=== PATIENT | male | born 1950 | race Caucasian/White ===

== ENCOUNTER 2024-12-14 19:04 | Observation (INO) ==
[2024-12-14] MEDS: ONDANSETRON HCL/PF 4 MG/2 ML VIAL INJ STA (19:18)
[2024-12-14 19:26] LABS: Basophils #(Absolute) Auto 0.1 (0.0-0.1); Eosinophils#(Absolute)Auto 0.2 (0.0-0.3); Granulocytes % - Auto 71.9 % (49.1-73.1); Hematocrit 41.6 % (41.3-50.1); Mean Corpuscular Volume 98.9 fl (81.9-96.5); Monocytes #(Absolute)- Auto 0.8 (0.2-0.8); Monocytes %(Percent)- Auto 7.5 % (4.5-10.7); Platelet Count 270 K/uL (142-355); White Blood Count 11.2 K/uL (3.7-9.6)
--- NOTE | 2024-12-14 19:28 | Emergency Department Note ---
HPI - General Adult General Chief complaint: Weakness Stated complaint: NAUSEA,VOMITING Time Seen by Provider: 12/14/24 19:11 Source: patient and EMS Mode of arrival: ambulance Limitations: no limitations History of Present Illness HPI narrative: This is a 74 year old male patient that presents to the ER with c/o per EMS patient states he feels numb all over, dizzy and felt like he was going to pass out, patient also has been vomiting. Patient denies any chest pain, SOB, back pain, abdominal pain or fever. Patient states he does not feel good. Patient has an old yellow bruise noted to his left upper forehead Onset (ago): hour(s) (3) Associated symptoms: Reports nausea/vomiting, syncope (near) and other (dizziness) Treatments prior to arrival: Reports other (zofran) Related Data Home Medications Medication Instructions Recorded Confirmed allopurinol 100 mg tablet 100 mg PO DAILY 05/17/24 05/17/24 diclofenac sodium 50 mg 50 mg PO DAILY 05/17/24 05/17/24 tablet,delayed release folic acid 1 mg tablet 3 mg PO DAILY 05/17/24 05/17/24 levothyroxine 50 mcg tablet 50 mcg PO QAM 05/17/24 05/17/24 lisinopril 10 mg tablet 10 mg PO 05/17/24 methotrexate sodium 2.5 mg tablet 7.5 mg PO QWEEK 05/17/24 05/17/24 Allergies Allergy/AdvReac Type Severity Reaction Status Date / Time Penicillins Allergy Unknown Verified 12/14/24 19:16 Review of Systems Status of ROS 10 or more systems reviewed and unremark able except as noted in history and below Constitutional Denies: fever, chills, change in weight, fatigue, malaise or night sweats Eyes Denies: change in vision, blurry vision, blind spots, light sensitivity, eye discomfort or eye discharge Ears, nose, mouth, and throat Denies: throat pain, neck pain, throat swelling, difficulty swallowing, hoarseness, mouth pain, swelling of lips/tongue or dry mouth Cardiovascular Denies: chest pain, palpitations, edema, swelling of feet/ankles, lightheadedness or shortness of breath with exertion Respiratory Denies: shortness of breath, cough, wheezing, stridor, pain on inspiration, change in phlegm color or coughing up blood Gastrointestinal Reports: nausea and vomiting; Denies: abdominal pain, coffee grounds in vomit, heartburn or feeling full early Genitourinary Denies: painful urination, urinary frequency, urinary urgency or blood in urine Musculoskeletal Denies: back pain, neck pain, extremity pain or extremity swelling Integumentary/Breast Denies: rash, itching, redness, skin pain, skin tenderness or skin swelling Neurological Denies: headache, numbness in extremities, weakness in extremities, lack of coordination, dizziness, vertigo or confusion Psychiatric Denies: anxiety, mood swings, panic attacks, change in sleep pattern or hopelessness Endocrine Denies: excessive urination, excessive thirst, fatigue, cold intolerance or excessive sweating Hematologic/Lymphatic Denies: easy bruising, easy bleeding or enlarged lymph nodes Allergic/Immunologic Denies: hives, throat swelling, tongue swelling, facial swelling or wheezing PFSH [facility] Medical History (Updated 05/17/24 @ 16:01 by Joslyn Boswell RN) Gout Surgical History (Updated 05/17/24 @ 16:02 by Joslyn Boswell RN) History of colonoscopy H/O vasectomy Family History (Updated 05/17/24 @ 16:07 by Joslyn Boswell RN) Father Myocardial infarction Grandfather Prostate cancer Exam Constitutional: normal general appearance and no apparent distress Vital Signs - 24 hr 12/14/24 19:14 12/14/24 19:30 12/14/24 20:12 Temperature 98.8 F Pulse Rate 76 77 69 Respiratory Rate 19 25 H Blood Pressure 133/71 132/66 151/80 Pulse Oximetry 98 97 Oxygen Delivery Or thod Room Air Room Air 12/14/24 20:14 12/14/24 20:16 Temperature Pulse Rate 80 69 Respiratory Rate Blood Pressure 147/75 147/69 Pulse Oximetry Oxygen Delivery Or thod HENMT: normocephalic, head/scalp traumatic (yellow bruising left upper forehead), hearing grossly normal bilaterally, external ears normal, nasal mucous membranes normal, external nose normal, oral mucous membranes normal and oropharynx normal Eyes: PERRL, EOMs intact bilaterally, conjunctivae normal and no scleral icterus Neck/C-Spine: visual inspection normal and trachea midline Lymph: no lymphadenopathy noted Chest: inspection of chest normal Respiratory: breath sounds equal bilaterally, normal respiratory effort, clear to auscultation bilaterally, no wheezes, no rales, no retractions and no use of accessory muscles Cardiovascular: normal heart rate noted, regular rhythm noted, no gallop, no rub, no murmur, no JVD, no clicks, peripheral pulses 2+ throughout and no additional abnormal heart sounds Gastrointestinal: abdomen normal to inspection, abdomen soft to palpation, nontender to palpation, nontender to percussion, nondistended, normoactive bowel sounds, no hepatosplenomegaly, no masses, no pulsatile mass, no ascites and no hernia Genitourinary: no CVA tenderness Back/Pelvis: spine normal to inspection Extremities: normal to inspection, normal to palpation, no tenderness, full ROM, no joint enlargement and no deformity 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 VSS, no s/s of acute distress noted Vital Signs Vital signs: Vital Signs Temperature 98.8 F 12/14/24 19:14 Pulse Rate 76 12/14/24 19:14 Respiratory Rate 19 12/14/24 19:14 Blood Pressure 133/71 12/14/24 19:14 Pulse Oximetry 98 12/14/24 19:14 Oxygen Delivery Method Room Air 12/14/24 19:14 Temperature 98.8 F 12/14/24 19:14 Pulse Rate 69 12/14/24 20:16 Respiratory Rate 25 H 12/14/24 19:30 Blood Pressure 147/69 12/14/24 20:16 Pulse Oximetry 97 12/14/24 19:30 Oxygen Delivery Method Room Air 12/14/24 19:30 Medical Decision Making Differential Diagnosis Differential Diagnosis: viral illness Medical Records Medical records reviewed: Yes I reviewed the patient's medical records Lab Data Lab results reviewed: Yes I reviewed the patient's lab results Labs: Lab Results 12/14/24 Range/Units 19:10 WBC 11.2 H (3.7-9.6) K/uL RBC 4.2 L (4.40-5.80) M/uL Hgb 14.2 (14.0-17.4) gm/dL Hct 41.6 (41.3-50.1) % MCV 98.9 H (81.9-96.5) fl MCH 33.9 H (27.6-33.7) pg MCHC 34.2 (33.0-35.7) g/dl RDW 13.7 (11.0-14.8) % Plt Count 270 (142-355) K/uL MPV 8.0 (6.0-10.4) fl Gran % 71.9 (49.1-73.1) % Lymph % (Auto) 17.6 (17.6-39.05) % Mcleod % (Auto) 7.5 (4.5-10.7) % Eos % (Auto) 2.0 (0.0-4.0) % Baso % (Auto) 1.0 (0.0-1.3) Lymph # (Auto) 2.0 (0.8-2.9) Mcleod # (Auto) 0.8 (0.2-0.8) Eos # (Auto) 0.2 (0.0-0.3) Baso # (Auto) 0.1 (0.0-0.1) Absolute Gran (auto) 8.0 H (2.0-6.2) PT 14.2 (12.1-15.0) SECONDS PT Normal Control 13.7 INR 1.05 APTT 27.1 (23.9-36.7) SECONDS D-Dimer 169 (100-600) ng/mL Sodium 140 (136-145) mmol/L Potassium 3.2 L (3.6-5.2) mmol/L Chloride 104.0 (98-107) mmol/L Carbon Dioxide 22 (21-32) mmol/L Anion Gap 14.0 (4-14) mEq/L BUN 20 H (7-18) mg/dL Creatinine 1.4 H (0.6-1.3) mg/dL Estimated GFR 53.1 (>59.9) Glucose 186 H (70-110) mg/dL Calcium 8.9 (8.5-10.1) mg/dL Total Bilirubin 0.42 (0.0-1.0) mg/dL AST 22 (15-37) U/L ALT 28 L (30-65) U/L Alkaline Phosphatase 84 (50-136) U/L Troponin I High Sens 5.50 (4.0-60.4) ng/L Total Protein 7.0 (6.4-8.2) g/dL Albumin 3.9 (3.4-5.0) g/dL Lipase 31.0 (16.0-77.0) U/L Imaging Data CT scan - head: Attestation: I have reviewed the pertinent imaging results. ECG Data Attestation: I have reviewed the pertinent ECG results. Discharge Plan Discharge Patient Disposition: Admitted As Observation Condition: Stable Clinical Impression: Near syncope, Dizziness, Hypokalemia, Nausea & vomiting Time of Disposition: 21:46
[2024-12-14 19:41] LABS: Potassium 3.2 mmol/L (3.6-5.2)
[2024-12-14 19:42] LABS: INR 1.05
[2024-12-14] MEDS: 0.9 % SODIUM CHLORIDE 1000 ML 1,000 ML IV STA (20:06)
[2024-12-14] MEDS: POTASSIUM CHLORIDE 20 MEQ TAB.ER.PRT PO ONE (20:06)
[2024-12-14] MEDS ORDERED: MECLIZINE HCL 25 MG TABLET PO ONE (21:54)
[2024-12-14] MEDS: MECLIZINE HCL 25 MG TABLET PO STA (21:56)
[2024-12-14 22:35] LABS: Specific Gravity Urine 1.015 (1.001-1.035); Urine Appearance CLEAR (CLEAR); Urine Blood NEGATIVE (NEG - TRACE); Urine Color YELLOW (STRAW/YELL.); Urine Urobilinogen Normal (NORMAL)
[2024-12-15] MEDS ORDERED: bisacodyL 10 MG SUPP.RECT PR PRN (00:28)
[2024-12-15] MEDS ORDERED: ONDANSETRON HCL/PF 4 MG/2 ML VIAL INJ PRN (00:28)
[2024-12-15] MEDS ORDERED: MAGNESIUM, ALUMINUM HYDROXIDE 30 ML ORAL.SUSP PO PRN (00:28)
[2024-12-15] MEDS ORDERED: ACETAMINOPHEN 500 MG TABLET PO PRN (00:28)
[2024-12-15] MEDS: 0.9 % SODIUM CHLORIDE 1000 ML 1,000 ML IV SCH (01:06)
[2024-12-15 05:33] LABS: Basophils%(Percent) Auto 0.4 (0.0-1.3); Eosinophils#(Absolute)Auto 0.1 (0.0-0.3); Eosinophils%(Percent) Auto 1.5 % (0.0-4.0); Granulocytes#(Absolute)- Auto 6.2 (2.0-6.2); Hematocrit 39.7 % (41.3-50.1); Mean Corpuscular Volume 99.3 fl (81.9-96.5); Monocytes #(Absolute)- Auto 0.8 (0.2-0.8); Monocytes %(Percent)- Auto 9.8 % (4.5-10.7); Platelet Count 219 K/uL (142-355); White Blood Count 8.6 K/uL (3.7-9.6)
[2024-12-15 08:32] LABS: Potassium 3.7 mmol/L (3.6-5.2)
--- NOTE | 2024-12-15 13:54 | Internal Medicine H&P ---
Internal Medicine - H&P: HPI History of Present Illness Chief complaint: NEAR SYNCOPE,VERTIGO,HYPOKALMEIA,NAUSEA,VOMITING Narrative: Pt in to ER from home with feeling "sick" and "not right." Was in his home when he started to feel sick (nauseated and dyspeptic). Ate a snack, drank some water, and laid down. He felt restless and EMS was called. He felt worse in the ambulance until he threw up and they stopped "in town" for a moment. In the ER, he felt better after Zofran and meclizine. Was found to be mildly dehydrated with mild hypokalemia, both resolved this AM. Admitted for obs due to near syncope/dizziness. Family at bedside and pt still doesn't "feel right." Answers a lot of questions with "I don't know." Family reports he seems more anxious and not answering questions like he normally would. He reports he did not sleep last night. Has been eating, drinking, and ambulating normally. Still no CP, dyspnea, cough, fevers, chills, HAs, vision changes, hearing changes, or return of nausea. Review of Systems Status of ROS 10 or more systems reviewed and unremark able except as noted in history and below Constitutional Denies: fever, chills, change in weight, fatigue, malaise or night sweats Eyes Denies: change in vision, blurry vision, blind spots, light sensitivity, eye discomfort or eye discharge Ears, nose, mouth, and throat Denies: throat pain, neck pain, throat swelling, difficulty swallowing, hoarseness, mouth pain, swelling of lips/tongue, dry mouth or vertigo Cardiovascular Denies: chest pain, palpitations, edema, swelling of feet/ankles, lightheadedness or shortness of breath with exertion Respiratory Denies: shortness of breath, cough, wheezing, stridor, pain on inspiration, change in phlegm color or coughing up blood Gastrointestinal Reports: nausea and vomiting; Denies: abdominal pain, coffee grounds in vomit, heartburn, difficulty swallowing or feeling full early Genitourinary Denies: painful urination, urinary frequency, urinary urgency or blood in urine Musculoskeletal Denies: back pain, neck pain, extremity pain or extremity swelling Integumentary/Breast Denies: rash, itching, redness, skin pain, skin tenderness or skin swelling Neurological Denies: headache, numbness in extremities, weakness in extremities, lack of coordination, dizziness, vertigo or confusion Psychiatric Denies: anxiety, mood swings, panic attacks, change in sleep pattern or hopelessness Endocrine Denies: excessive urination, excessive thirst, fatigue, cold intolerance or excessive sweating Hematologic/Lymphatic Denies: easy bruising, easy bleeding or enlarged lymph nodes Allergic/Immunologic Denies: hives, throat swelling, tongue swelling, facial swelling or wheezing PFSH PFSH Medical History (Updated 12/15/24 @ 14:00 by Ariel Astorga MD) GERD (gastroesophageal reflux disease) Gout Surgical History History of colonoscopy H/O vasectomy Family History (Updated 05/17/24 @ 16:07 by Joslyn Boswell, MOHAN) Father Myocardial infarction Grandfather Prostate cancer Social History What is your current living situation: I presently have a place to live Problems where you live: no known problems Highest level of school completed/degree received: high school Gender Identity: male Meds Home Medications and Allergies Home Medications Medication Instructions Recorded Confirmed Type allopurinol 100 mg tablet 100 mg PO DAILY 05/17/24 12/14/24 History diclofenac sodium 50 mg 50 mg PO DAILY PRN pain 05/17/24 12/15/24 History tablet,delayed release folic acid 1 mg tablet 3 mg PO DAILY 05/17/24 12/14/24 History levothyroxine 50 mcg tablet 50 mcg PO QAM 05/17/24 12/15/24 History lisinopril 10 mg tablet 10 mg PO BID 05/17/24 12/15/24 History methotrexate sodium 2.5 mg tablet 7.5 mg PO QWEEK 05/17/24 12/14/24 History pantoprazole 40 mg tablet,delayed 40 mg PO DAILY 12/14/24 12/14/24 History release cannabidiol See Rx Instructions PO DAILY PAIN 12/15/24 12/15/24 History Allergies Allergy/AdvReac Type Severity Reaction Status Date / Time Penicillins Allergy Unknown Verified 12/14/24 19:16 Exam Constitutional: normal general appearance, no apparent distress, average body habitus, no limitations and alert Vital Signs - 24 hr 12/14/24 19:14 12/14/24 19:30 12/14/24 20:12 Temperature 98.8 F Pulse Rate 76 77 69 Pulse Rate [Left B rachial] Respiratory Rate 19 25 H Blood Pressure 133/71 132/66 151/80 Blood Pressure [Le ft Arm] Pulse Oximetry 98 97 Oxygen Delivery [facility] Room Air Room Air 12/14/24 20:14 12/14/24 20:16 12/14/24 20:45 Temperature Pulse Rate 80 69 66 Pulse Rate [Left B rachial] Respiratory Rate 19 Blood Pressure 147/75 147/69 129/67 Blood Pressure [Le ft Arm] Pulse Oximetry 99 [facility] 12/14/24 21:45 12/14/24 22:45 12/14/24 23:45 Temperature Pulse Rate 71 69 71 Pulse Rate [Left B rachial] Respiratory Rate 16 18 16 Blood Pressure 140/87 152/82 149/83 Blood Pressure [Le ft Arm] Pulse Oximetry 98 99 98 Oxygen Delivery [facility] Room Air 12/14/24 23:45 12/15/24 00:28 12/15/24 00:29 Temperature 98.8 F 98.6 F Pulse Rate 71 Pulse Rate [Left B rachial] 66 Respiratory Rate 16 20 Blood Pressure 149/83 Blood Pressure [Le ft Arm] 140/77 Pulse Oximetry 98 99 Oxygen Delivery [facility] Room Air Room Air 12/15/24 00:29 12/15/24 04:00 12/15/24 08:00 Temperature 98.6 F 98.5 F 98.3 F Pulse Rate Pulse Rate [Left B rachial] 66 29 L 73 Respiratory Rate 20 19 20 Blood Pressure Blood Pressure [Le ft Arm] 140/77 118/60 113/73 Pulse Oximetry 99 93 L 97 Oxygen Delivery [facility] Room Air Room Air Room Air 12/15/24 12:00 Temperature 97.9 F Pulse Rate Pulse Rate [Left B rachial] 73 Respiratory Rate 20 Blood Pressure Blood Pressure [Le ft Arm] 115/65 Pulse Oximetry 97 Oxygen Delivery [facility] Room Air HENMT: normocephalic, head/scalp atraumatic, hearing grossly normal bilaterally and external ears normal Eyes: PERRL, EOMs intact bilaterally, conjunctivae normal, normal visual segal by confrontation, alignment normal, periorbital findings normal and no nystagmus Neck/C-Spine: visual inspection normal, trachea midline and cervical full ROM noted Lymph: no lymphadenopathy noted Chest: palpation of chest normal Respiratory: breath sounds equal bilaterally, normal respiratory effort, clear to auscultation bilaterally, no wheezes, no rales and no retractions Cardiovascular: normal heart rate noted, regular rhythm noted, no murmur and peripheral pulses 2+ throughout Gastrointestinal: abdomen normal to inspection, abdomen soft to palpation, nontender to palpation, nondistended, normoactive bowel sounds and no hepatosplenomegaly Genitourinary: no CVA tenderness Back/Pelvis: no thoracic spine tenderness, no lumbar spine tenderness, thoracic spine ROM normal, lumbar spine ROM normal and no paraspinal muscle tenderness noted Extremities: normal to inspection, normal to palpation, no tenderness and full ROM Neurology: drilling rig operator II-XII intact, no movement abnormality noted, no focal motor deficit noted, gait normal, speech normal, coordination normal and GCS normal Psychiatry: mental status grossly normal, oriented x3, thought process normal, cooperative, affect abnormality noted (anxious) and (tearful), psychomotor activity normal and memory abnormal (short term memory loss) Skin: skin color normal Internal Medicine - H&P: Reslt Labs Labs: CBC WBC 8.6 K/uL (3.7-9.6) 12/15/24 05:30 RBC 4.0 M/uL (4.40-5.80) L 12/15/24 05:30 Hgb 13.6 gm/dL (14.0-17.4) L 12/15/24 05:30 Hct 39.7 % (41.3-50.1) L 12/15/24 05:30 MCV 99.3 fl (81.9-96.5) H 12/15/24 05:30 MCH 34.1 pg (27.6-33.7) H 12/15/24 05:30 MCHC 34.3 g/dl (33.0-35.7) 12/15/24 05:30 RDW 13.6 % (11.0-14.8) 12/15/24 05:30 Plt Count 219 K/uL (142-355) 12/15/24 05:30 MPV 7.9 fl (6.0-10.4) 12/15/24 05:30 Gran % 72.0 % (49.1-73.1) 12/15/24 05:30 Lymph % (Auto) 16.3 % (17.6-39.05) L 12/15/24 05:30 [place] % (Auto) 9.8 % (4.5-10.7) 12/15/24 05:30 Eos % (Auto) 1.5 % (0.0-4.0) 12/15/24 05:30 Baso % (Auto) 0.4 (0.0-1.3) 12/15/24 05:30 Lymph # (Auto) 1.4 (0.8-2.9) 12/15/24 05:30 [place] # (Auto) 0.8 (0.2-0.8) 12/15/24 05:30 Eos # (Auto) 0.1 (0.0-0.3) 12/15/24 05:30 Baso # (Auto) 0.0 (0.0-0.1) 12/15/24 05:30 Absolute Gran (auto) 6.2 (2.0-6.2) 12/15/24 05:30 BMP Sodium 140 mmol/L (136-145) 12/15/24 05:30 Potassium 3.7 mmol/L (3.6-5.2) 12/15/24 05:30 Chloride 108.0 mmol/L (98-107) H 12/15/24 05:30 Carbon Dioxide 26 mmol/L (21-32) 12/15/24 05:30 Anion Gap 6.0 mEq/L (4-14) 12/15/24 05:30 BUN 15 mg/dL (7-18) 12/15/24 05:30 Creatinine 1.1 mg/dL (0.6-1.3) 12/15/24 05:30 Estimated GFR 70.9 (>59.9) 12/15/24 05:30 Glucose 86 mg/dL (70-110) 12/15/24 05:30 Calcium 8.2 mg/dL (8.5-10.1) L 12/15/24 05:30 Magnesium 2.2 mg/dL (1.8-2.4) 12/15/24 05:30 Total Bilirubin 0.42 mg/dL (0.0-1.0) 12/14/24 19:10 AST 22 U/L (15-37) 12/14/24 19:10 ALT 28 U/L (30-65) L 12/14/24 19:10 Alkaline Phosphatase 84 U/L (50-136) 12/14/24 19:10 Total Protein 7.0 g/dL (6.4-8.2) 12/14/24 19:10 Albumin 3.9 g/dL (3.4-5.0) 12/14/24 19:10 Cardiac Enzymes Troponin I High Sens 5.70 ng/L (4.0-60.4) 12/14/24 21:25 Liver Function Total Bilirubin 0.42 mg/dL (0.0-1.0) 12/14/24 19:10 AST 22 U/L (15-37) 12/14/24 19:10 ALT 28 U/L (30-65) L 12/14/24 19:10 Alkaline Phosphatase 84 U/L (50-136) 12/14/24 19:10 Total Protein 7.0 g/dL (6.4-8.2) 12/14/24 19:10 Albumin 3.9 g/dL (3.4-5.0) 12/14/24 19:10 Urine Urine Color Yellow (STRAW/YELL.) 12/14/24 21:13 Urine Appearance Clear (CLEAR) 12/14/24 21:13 Ur Specific Shepherd 1.015 (1.001-1.035) 12/14/24 21:13 Urine Protein Negative (NEGATIVE) 12/14/24 21:13 Urine Glucose (UA) Normal (NORMAL) 12/14/24 21:13 Urine Ketones Negative (NEGATIVE) 12/14/24 21:13 Urine Occult Blood Negative (NEG - TRACE) 12/14/24 21:13 Urine Nitrite Negative (NEGATIVE) 12/14/24 21:13 Urine Bilirubin Negative (NEGATIVE) 12/14/24 21:13 Urine Urobilinogen Normal (NORMAL) 12/14/24 21:13 Ur Leukocyte Esterase Negative (NEGATIVE) 12/14/24 21:13 Assessment and Plan Assessment and Plan (1) Hypertension: Assessment and Plan: stable. home meds tomorrow Qualifiers: Hypertension type: primary hypertension Qualified Code(s): I10 - Essential (primary) hypertension Code(s): I10 - Essential (primary) hypertension (2) Rheumatoid arthritis: Assessment and Plan: hold MTX for now. Qualifiers: Rheumatoid factor presence: with rheumatoid factor Rheumatoid arthritis location: multiple sites Qualified Code(s): M05.79 - Rheumatoid arthritis with rheumatoid factor of multiple sites without organ or systems involvement Code(s): M06.9 - Rheumatoid arthritis, unspecified (3) Syncope, near: Assessment and Plan: Vertigo vs cardiac vs electrolytes/dehydration vs CVA/TIA. Code(s): R55 - Syncope and collapse (4) Hypokalemia: Assessment and Plan: resolved Code(s): E87.6 - Hypokalemia (5) Acute kidney injury: Assessment and Plan: resolved Code(s): N17.9 - Acute kidney failure, unspecified (6) Mild dehydration: Assessment and Plan: resolved Code(s): E86.0 - Dehydration Plan IVFs, telemetry, Zofran/Meclizine/Valium x1 and monitor. Plan to keep until Tuesday for carotid dopplers, brain MRI, ECHO, and EST/NST.
[2024-12-15] MEDS: LEVOTHYROXINE SODIUM 50 MCG TABLET PO SCH (14:32)
[2024-12-15] MEDS: MECLIZINE HCL 25 MG TABLET PO PRN (14:32)
[2024-12-15] MEDS: MELATONIN 5 MG TABLET PO SCH (21:45)
[2024-12-16] MEDS: ALLOPURINOL 100 MG TABLET PO SCH (08:02)
[2024-12-16] MEDS: FOLIC ACID 1 MG TABLET PO SCH (08:02)
[2024-12-16] MEDS: LEVOTHYROXINE SODIUM 50 MCG TABLET PO SCH (08:03)
[2024-12-16] MEDS: PANTOPRAZOLE SODIUM 40 MG TABLET.DR PO SCH (08:03)
--- NOTE | 2024-12-16 09:00 | Internal Medicine Prog Note ---
Progress Note: A&P Assessment and Plan (1) Hypertension: Assessment and Plan: stable. Qualifiers: Hypertension type: primary hypertension Qualified Code(s): I10 - Essent ial (primary) hypertension (2) Rheumatoid arthritis: Assessment and Plan: hold MTX for now. Qualifiers: Rheumatoid arthritis location: multiple sites Rheumatoid factor presence: with rheumatoid factor Qualified Code(s): M05.79 - Rheumatoid arthritis with rheumatoid factor of multiple sites without organ or systems involvement (3) Syncope, near: Assessment and Plan: ECHO, Carotid Dopplers, EST, and brain MRI tomorrow. (4) Hypokalemia: Assessment and Plan: resolved. repeat BMP today (5) Acute kidney injury: Assessment and Plan: resolved, repeat BMP. (6) Mild dehydration: Assessment and Plan: resolved Plan Syncope testing tomorrow. Zofran/Antivert prn. Fall Risk Details Petit Fall Scale Risk Level: Low Fall Risk Current Medications: Current Medications Acetaminophen (Acetaminophen 500 Mg Tablet) 500 mg PO Q6H PRN PRN Reason: Pain Allopurinol (Allopurinol 100 Mg Tablet) 100 mg PO DAILY [facility] Last Admin: 12/16/24 08:02 Dose: 100 mg Bisacodyl (Bisacodyl 10 Mg Supp.Rect) 10 mg NM DAILY PRN PRN Reason: Constipation Folic Acid (Folic Acid 1 Mg Tablet) 3 mg PO DAILY [facility] Last Admin: 12/16/24 08:02 Dose: 3 mg Sodium Chloride (Sodium Chloride) 1,000 mls @ 100 mls/hr IV CONT [facility] Last Admin: 12/16/24 00:40 Dose: 100 mls/hr Levothyroxine Sodium (Levothyroxine Sodium 50 Mcg Tablet) 50 mcg PO DAILY [facility] Last Admin: 12/16/24 08:03 Dose: 50 mcg Lorazepam (Lorazepam 2 Mg/Ml Vial) 1 mg IVP Q6H PRN; Protocol PRN Reason: Anxiety/restlessness Magnesium Hydroxide (Magnesium, Aluminum Hydroxide 30 Ml Oral.Susp) 30 ml PO DAILY PRN PRN Reason: gerd Meclizine HCl (Meclizine Hcl 25 Mg Tablet) 25 mg PO Q8H PRN PRN Reason: Vertigo Last Admin: 12/16/24 08:07 Dose: 25 mg Melatonin (Melatonin 5 Mg Tablet) 5 mg PO ONCE [facility] Last Admin: 12/15/24 21:45 Dose: 5 mg Ondansetron HCl (Ondansetron Hcl/Pf 4 Mg/2 Ml Vial) 4 mg INJ Q6H PRN PRN Reason: Nausea And Vomiting Pantoprazole Sodium (Pantoprazole Sodium 40 Mg Tablet.Dr) 40 mg PO DAILY [facility] Last Admin: 12/16/24 08:03 Dose: 40 mg Time Spent With Patient Time: Total time spent is greater than 50% in coordination of care (as documented) at patient's floor/unit and/or counseling patient: Time with patient: less than 15 minutes Internal Medicine - PN: Subj Subjective Interval history: Slept well last night. Son and nurse at bedside. No overnight events. Still wants to stay for testing tomorrow. Did have Zofran/Antivert yesterday. Symptoms have not returned and he no longer has a sense of doom. Exam Constitutional: normal general appearance, no apparent distress, average body habitus, no limitations and alert Vital Signs - 24 hr 12/15/24 12:00 12/15/24 16:00 12/15/24 20:00 Temperature 97.9 F 98 F 98.5 F Pulse Rate [Left B rachial] 73 63 72 Respiratory Rate 20 20 17 Blood Pressure [Le ft Arm] 115/65 135/71 139/58 Pulse Oximetry 97 96 95 [facility] Delivery [facility] Room Air Room Air Room Air 12/16/24 00:00 12/16/24 00:28 12/16/24 04:00 Temperature 98.8 F 98.8 F 98.3 F Pulse Rate [Left B rachial] 66 66 57 L Respiratory Rate 18 18 17 Blood Pressure [Le ft Arm] 112/55 112/55 107/65 Pulse Oximetry 94 L 94 L 95 Oxygen Delivery [facility] Room Air Room Air Room Air 12/16/24 07:33 Temperature 97.6 F Pulse Rate [Left B rachial] 50 L Respiratory Rate 19 Blood Pressure [Le ft Arm] 103/59 Pulse Oximetry 95 Oxygen Delivery [facility] Room Air HENMT: normocephalic, head/scalp atraumatic, hearing grossly normal bilaterally and external ears normal Eyes: PERRL, EOMs intact bilaterally and conjunctivae normal Respiratory: breath sounds equal bilaterally, normal respiratory effort, clear to auscultation bilaterally and no wheezes Cardiovascular: normal heart rate noted, regular rhythm noted and no murmur Gastrointestinal: abdomen normal to inspection, abdomen soft to palpation, nontender to palpation, nondistended and normoactive bowel sounds Back/Pelvis: thoracic spine ROM normal and lumbar spine ROM normal Extremities: normal to inspection, normal to palpation and full ROM Neurology: field underwriter II-XII intact, no movement abnormality noted, speech normal and no fasciculations noted Psychiatry: mental status grossly normal, oriented x3, thought process normal, cooperative, affect normal, psychomotor activity normal and memory normal Review of Systems Status of ROS: 10 or more systems reviewed and unremarkable except as noted in history and below Constitutional: Denies: fever, chills, change in weight, fatigue, malaise or night sweats Eyes: Denies: change in vision, blurry vision, blind spots, light sensitivity, eye discomfort or eye discharge Ears, nose, mouth, and throat: Denies: throat pain, neck pain, throat swelling, difficulty swallowing, hoarseness, mouth pain, swelling of lips/tongue, dry mouth or vertigo Cardiovascular: Denies: chest pain, palpitations, edema, swelling of feet/ankles, lightheadedness or shortness of breath with exertion Respiratory: Denies: shortness of breath, cough, wheezing, stridor, pain on inspiration, change in phlegm color or coughing up blood Gastrointestinal: Reports: nausea and vomiting; Denies: abdominal pain, coffee grounds in vomit, heartburn, difficulty swallowing or feeling full early Genitourinary: Denies: painful urination, urinary frequency, urinary urgency or blood in urine Musculoskeletal: Denies: back pain, neck pain, extremity pain or extremity swelling Integumentary/Breast: Denies: rash, itching, redness, skin pain, skin tenderness or skin swelling Neurological: Denies: headache, numbness in extremities, weakness in extremities, lack of coordination, dizziness, vertigo or confusion Psychiatric: Denies: anxiety, mood swings, panic attacks, change in sleep pattern or hopelessness Endocrine: Denies: excessive urination, excessive thirst, fatigue, cold intolerance or excessive sweating Hematologic/Lymphatic: Denies: easy bruising, easy bleeding or enlarged lymph nodes Allergic/Immunologic: Denies: hives, throat swelling, tongue swelling, facial swelling or wheezing
[2024-12-17 05:16] LABS: Basophils #(Absolute) Auto 0.1 (0.0-0.1); Basophils%(Percent) Auto 0.9 (0.0-1.3); Eosinophils#(Absolute)Auto 0.4 (0.0-0.3); Eosinophils%(Percent) Auto 6.3 % (0.0-4.0); Granulocytes % - Auto 60.2 % (49.1-73.1); Granulocytes#(Absolute)- Auto 4.2 (2.0-6.2); Mean Corpuscular Volume 100.6 fl (81.9-96.5); Monocytes #(Absolute)- Auto 0.7 (0.2-0.8); Monocytes %(Percent)- Auto 9.7 % (4.5-10.7); Platelet Count 185 K/uL (142-355); White Blood Count 6.9 K/uL (3.7-9.6)
[2024-12-17] MEDS: LORazepam 2 MG/ML VIAL IVP PRN (05:29)
[2024-12-17 05:30] LABS: Potassium 3.9 mmol/L (3.6-5.2)
[2024-12-17] MEDS: ENOXAPARIN SODIUM 40 MG/0.4 ML SYRINGE SUBQ SCH (09:54)
--- NOTE | 2024-12-17 10:57 | Progress Note ---
Progress Note: Subjective Subjective Interval history: Patient had an episode of anxiety around 4 a.m, was resolved with Ativan. Provider requested Physical Therapy to evaluate and perform Marilyn maneuver. Patient has a hard time explaining how he is feeling and states he is having trouble processing things when first looking at them. He disclosed he has not been taking his Thyroid medication, suspected Myxedema as a result. Echocardiogram and CTA of Head/Neck will be performed today. other than eyes and head feeling funny and different patient denies any further issues since Tuesday been doing OK otherwise. Exam Exam: Patient in low chavarria's position with two family members at bedside upon entering room for exam. Constitutional: normal general appearance, no apparent distress, average body habitus, limitations noted (altered mental status) and level of alertness abnormal (confused) Vital Signs - 24 hr 12/16/24 11:58 12/16/24 16:00 12/16/24 20:00 Temperature 98.1 F 98.7 F 98.7 F Pulse Rate [Left B rachial] 81 62 65 Respiratory Rate 19 19 17 Blood Pressure [Le ft Arm] 177/92 146/70 124/73 Pulse Oximetry 98 96 95 Oxygen Delivery [facility] Room Air Room Air Room Air 12/17/24 00:00 12/17/24 00:00 12/17/24 04:00 Temperature 98.3 F 98.3 F 98.4 F Pulse Rate [Left B rachial] 56 L 56 L 53 L Respiratory Rate 16 16 17 Blood Pressure [Le ft Arm] 105/53 105/53 123/64 Pulse Oximetry 96 96 96 Oxygen Delivery [facility] Room Air Room Air Room Air 12/17/24 07:52 Temperature 97.8 F Pulse Rate [Left B rachial] 60 Respiratory Rate 20 Blood Pressure [Le ft Arm] 132/70 Pulse Oximetry 97 Oxygen Delivery [facility] Room Air HENMT: normocephalic, head/scalp atraumatic, hearing grossly normal bilaterally, external ears normal, TMs normal bilaterally, nasal mucous membranes normal, external nose normal, oral mucous membranes normal and oropharynx normal Eyes: PERRL, EOMs intact bilaterally, conjunctivae normal, no scleral icterus, papilledema noted, normal visual segal by confrontation, alignment normal, periorbital findings normal and no nystagmus Neck/C-Spine: visual inspection normal, trachea midline, cervical spine nontender, abnormal cervical ROM noted, supple, no meningeal signs, thyroid normal and no carotid bruits Lymph: no lymphadenopathy noted and no lymphedema noted Chest: inspection of chest normal and palpation of chest normal Respiratory: breath sounds equal bilaterally, normal respiratory effort, clear to auscultation bilaterally, no wheezes, no rales, no retractions and no use of accessory muscles Cardiovascular: heart rate abnormal (bradycardic), regular rhythm noted, no gallop, no rub, no murmur, no JVD, no clicks, peripheral pulses 2+ throughout, no bruits noted and no additional abnormal heart sounds Gastrointestinal: abdomen normal to inspection, abdomen soft to palpation, nontender to palpation, nontender to percussion, nondistended, normoactive bowel sounds, no hepatosplenomegaly, no masses, no pulsatile mass, no ascites and no hernia Genitourinary: no CVA tenderness Back/Pelvis: spine normal to inspection, no thoracic spine tenderness, no lumbar spine tenderness, thoracic spine ROM normal, lumbar spine ROM normal and no paraspinal muscle tenderness noted Extremities: normal to inspection, normal to palpation, no tenderness, full ROM, no joint enlargement and no deformity Neurology: shirt sorter II-XII intact, no movement abnormality noted, no focal motor deficit noted, no sensory deficits noted, gait normal, speech normal, coordination normal, no pronator drift noted, no fasciculations noted and GCS normal Psychiatry: mental status grossly normal, oriented x3, thought process abnormality noted, cooperative, affect abnormality noted (depressed), psychomotor activity normal and memory normal Feel stressed/tense/nervous/anxious/difficulty sleeping: not at all Skin: skin color normal, no rash, no lesions, no ecchymosis noted, no wounds, no lacerations, skin turgor normal, no jaundice, no petechiae, no mottling and nails abnormality noted Progress Note: Objective Labs Labs: CBC WBC 6.9 K/uL (3.7-9.6) 12/17/24 04:50 RBC 3.8 M/uL (4.40-5.80) L 12/17/24 04:50 Hgb 13.1 gm/dL (14.0-17.4) L 12/17/24 04:50 Hct 38.0 % (41.3-50.1) L 12/17/24 04:50 MCV 100.6 fl (81.9-96.5) H 12/17/24 04:50 MCH 34.6 pg (27.6-33.7) H 12/17/24 04:50 MCHC 34.4 g/dl (33.0-35.7) 12/17/24 04:50 RDW 13.9 % (11.0-14.8) 12/17/24 04:50 Plt Count 185 K/uL (142-355) 12/17/24 04:50 MPV 7.9 fl (6.0-10.4) 12/17/24 04:50 Gran % 60.2 % (49.1-73.1) 12/17/24 04:50 Lymph % (Auto) 22.9 % (17.6-39.05) 12/17/24 04:50 [facility] [facility] % (Auto) 9.7 % (4.5-10.7) 12/17/24 04:50 Eos % (Auto) 6.3 % (0.0-4.0) H 12/17/24 04:50 Baso % (Auto) 0.9 (0.0-1.3) 12/17/24 04:50 Lymph # (Auto) 1.6 (0.8-2.9) 12/17/24 04:50 [facility] # (Auto) 0.7 (0.2-0.8) 12/17/24 04:50 Eos # (Auto) 0.4 (0.0-0.3) H 12/17/24 04:50 Baso # (Auto) 0.1 (0.0-0.1) 12/17/24 04:50 Absolute Gran (auto) 4.2 (2.0-6.2) 12/17/24 04:50 BMP Sodium 141 mmol/L (136-145) 12/17/24 04:50 Potassium 3.9 mmol/L (3.6-5.2) 12/17/24 04:50 Chloride 110.0 mmol/L (98-107) H 12/17/24 04:50 Carbon Dioxide 24 mmol/L (21-32) 12/17/24 04:50 Anion Gap 7.0 mEq/L (4-14) 12/17/24 04:50 BUN 14 mg/dL (7-18) 12/17/24 04:50 Creatinine 1.2 mg/dL (0.6-1.3) 12/17/24 04:50 Estimated GFR 63.9 (>59.9) 12/17/24 04:50 Glucose 88 mg/dL (70-110) 12/17/24 04:50 Calcium 8.0 mg/dL (8.5-10.1) L 12/17/24 04:50 Magnesium 2.2 mg/dL (1.8-2.4) 12/15/24 05:30 Total Bilirubin 0.42 mg/dL (0.0-1.0) 12/14/24 19:10 AST 22 U/L (15-37) 12/14/24 19:10 ALT 28 U/L (30-65) L 12/14/24 19:10 Alkaline Phosphatase 84 U/L (50-136) 12/14/24 19:10 Total Protein 7.0 g/dL (6.4-8.2) 12/14/24 19:10 Albumin 3.9 g/dL (3.4-5.0) 12/14/24 19:10 Cardiac Enzymes Troponin I High Sens 5.70 ng/L (4.0-60.4) 12/14/24 21:25 Liver Function Total Bilirubin 0.42 mg/dL (0.0-1.0) 12/14/24 19:10 AST 22 U/L (15-37) 12/14/24 19:10 ALT 28 U/L (30-65) L 12/14/24 19:10 Alkaline Phosphatase 84 U/L (50-136) 12/14/24 19:10 Total Protein 7.0 g/dL (6.4-8.2) 12/14/24 19:10 Albumin 3.9 g/dL (3.4-5.0) 12/14/24 19:10 Urine Urine Color Yellow (STRAW/YELL.) 12/14/24 21:13 Urine Appearance Clear (CLEAR) 12/14/24 21:13 Ur Specific [place] 1.015 (1.001-1.035) 12/14/24 21:13 Urine Protein Negative (NEGATIVE) 12/14/24 21:13 Urine Glucose (UA) Normal (NORMAL) 12/14/24 21:13 Urine Ketones Negative (NEGATIVE) 12/14/24 21:13 Urine Occult Blood Negative (NEG - TRACE) 12/14/24 21:13 Urine Nitrite Negative (NEGATIVE) 12/14/24 21:13 Urine Bilirubin Negative (NEGATIVE) 12/14/24 21:13 Urine Urobilinogen Normal (NORMAL) 12/14/24 21:13 Ur Leukocyte Esterase Negative (NEGATIVE) 12/14/24 21:13 Progress Note: A&P Assessment and Plan (1) Myxedema: (2) Acute kidney injury: Assessment and Plan: resolved, repeat BMP. (3) Confusion and disorientation: Assessment and Plan: feels funny (4) Vertigo: Assessment and Plan: changed since Tuesday and patient has trouble clarifying the change in vision and feeling off and foggy headed (5) Hypertension: Assessment and Plan: stable. Qualifiers: Hypertension type: primary hypertension Qualified Code(s): I10 - Essential (primary) hypertension (6) Rheumatoid arthritis: Assessment and Plan: hold MTX for now. Qualifiers: Rheumatoid arthritis location: multiple sites Rheumatoid factor presence: with rheumatoid factor Qualified Code(s): M05.79 - Rheumatoid arthritis with rheumatoid factor of multiple sites without organ or systems involvement (7) Syncope, near: Assessment and Plan: ECHO, Carotid Dopplers, EST, and brain MRI tomorrow. (8) Hypokalemia: Assessment and Plan: resolved. repeat BMP today (9) Mild dehydration: Assessment and Plan: resolved (10) Nausea & vomiting: Assessment and Plan: resolved since Tuesday Qualifiers: Vomiting type: unspecified Qualified Code(s): R11.2 - Nausea with vomiting, unspecified Plan Allopurinol 100 mg PO DAILY Folic Acid 3 mg PO DAILY Pantoprazole Sodium 40 mg PO DAILY Melatonin 5 mg PO ONCE Levothyroxine Sodium 50 mcg PO DAILY restarted as patient had stopped it on his own months ago without discussing with [place] Enoxaparin Sodium 40 mg SUBQ DAILY DVT prophylaxis Acetaminophen 500 mg PO Q6H PRN Magnesium Hydroxide 30 ml PO DAILY PRN Bisacodyl 10 mg AL DAILY PRN Ondansetron Hcl 4 mg INJ Q6H PRN Meclizine Hcl 25 mg PO Q8H PRN CTA Head/Neck Echocardiogram PT/OT Eval - Marilyn Maneuver and near syncope Fall Risk Details Petit Fall Scale Risk Level: Moderate Fall Risk Current Medications: Current Medications Acetaminophen (Acetaminophen 500 Mg Tablet) 500 mg PO Q6H PRN PRN Reason: Pain Allopurinol (Allopurinol 100 Mg Tablet) 100 mg PO DAILY [facility] Last Admin: 12/17/24 08:18 Dose: 100 mg Bisacodyl (Bisacodyl 10 Mg Supp.Rect) 10 mg AL DAILY PRN PRN Reason: Constipation Enoxaparin Sodium (Enoxaparin Sodium 40 Mg/0.4 Ml Syringe) 40 mg SUBQ DAILY [facility] Last Admin: 12/17/24 09:54 Dose: 40 mg Folic Acid (Folic Acid 1 Mg Tablet) 3 mg PO DAILY [facility] Last Admin: 12/17/24 08:18 Dose: 3 mg Levothyroxine Sodium (Levothyroxine Sodium 50 Mcg Tablet) 50 mcg PO DAILY [facility] Last Admin: 12/17/24 08:18 Dose: 50 mcg Magnesium Hydroxide (Magnesium, Aluminum Hydroxide 30 Ml Oral.Susp) 30 ml PO DAILY PRN PRN Reason: gerd Meclizine HCl (Meclizine Hcl 25 Mg Tablet) 25 mg PO Q8H PRN PRN Reason: Vertigo Last Admin: 12/16/24 08:07 Dose: 25 mg Melatonin (Melatonin 5 Mg Tablet) 5 mg PO ONCE [facility] Last Admin: 12/16/24 21:20 Dose: 5 mg Ondansetron HCl (Ondansetron Hcl/Pf 4 Mg/2 Ml Vial) 4 mg INJ Q6H PRN PRN Reason: Nausea And Vomiting Pantoprazole Sodium (Pantoprazole Sodium 40 Mg Tablet.) 40 mg PO DAILY [facility] Last Admin: 12/17/24 08:18 Dose: 40 mg Time Spent With Patient Time: Total time spent is greater than 50% in coordination of care (as documented) at patient's floor/unit and/or counseling patient:
[2024-12-18 05:37] LABS: Basophils #(Absolute) Auto 0.1 (0.0-0.1); Basophils%(Percent) Auto 0.7 (0.0-1.3); Eosinophils#(Absolute)Auto 0.5 (0.0-0.3); Eosinophils%(Percent) Auto 5.2 % (0.0-4.0); Granulocytes % - Auto 72.7 % (49.1-73.1); Granulocytes#(Absolute)- Auto 7.3 (2.0-6.2); Hematocrit 40.1 % (41.3-50.1); Mean Corpuscular Volume 99.4 fl (81.9-96.5); Monocytes #(Absolute)- Auto 0.8 (0.2-0.8); Monocytes %(Percent)- Auto 8.3 % (4.5-10.7); Platelet Count 191 K/uL (142-355); White Blood Count 10.1 K/uL (3.7-9.6)
[2024-12-18 05:57] LABS: Potassium 3.8 mmol/L (3.6-5.2)
[2024-12-18 08:09] VITALS: BP 137/83; PULSE 64; RESP 19; TEMP 98.8
--- NOTE | 2024-12-18 11:27 | Discharge Summary ---
DS: Providers Provider Date of admission: 12/14/24 21:51 Primary care physician: Bailey Spain NP Admitting clinician: Sylvia Rowe Attending physician on admission: Ariel Astorga Consults: 12/17/24 09:23 Consult to Physical Therapy Routine Comment: Consulting Provider: Reason for consultation: near syncope and vertigo Physician Instructions: evaluate and treat Consult to Speech Therapy Routine Comment: Consulting Provider: Reason for consultation: vertigo and near syncope Physician Instructions: evaluate and treat Attending physician on discharge: Kelly Miller Discharging clinician: Kelly Miller Anticipated date of discharge: 12/18/24 DS: Diagnosis Discharge Diagnosis (1) Myxedema: (2) Acute kidney injury: (3) Confusion and disorientation: (4) Vertigo: (5) Hypertension: Qualifiers: Hypertension type: primary hypertension Qualified Code(s): I10 - Essent ial (primary) hypertension (6) Rheumatoid arthritis: Qualifiers: Rheumatoid arthritis location: multiple sites Rheumatoid factor presence: with rheumatoid factor Qualified Code(s): M05.79 - Rheumatoid arthritis with rheumatoid factor of multiple sites without organ or systems involvement (7) Syncope, near: (8) Hypokalemia: (9) Mild dehydration: (10) Nausea & vomiting: Qualifiers: Vomiting type: unspecified Qualified Code(s): R11.2 - Nausea with vomiting, unspecified Plan Discharge home for self care. DS: Summary Hospital Course Hospital Course: Pt in to ER from home with feeling "sick" and "not right." Was in his home when he started to feel sick (nauseated and dyspeptic). Ate a snack, drank some water, and laid down. He felt restless and EMS was called. He felt worse in the ambulance until he threw up and they stopped "in town" for a moment. In the ER, he felt better after Zofran and meclizine. Was found to be mildly dehydrated with mild hypokalemia, both resolved this AM. Admitted for obs due to near syncope/dizziness. Day one of hospital stay, family at bedside and pt still doesn't "feel right." Answers a lot of questions with "I don't know." Family reports he seems more anxious and not answering questions like he normally would. He reports he did not sleep last night. Has been eating, drinking, and ambulating normally. Still no CP, dyspnea, cough, fevers, chills, HAs, vision changes, hearing changes, or return of nausea. Day two of hospital stay, patient slept well last night. Son and nurse at bedside. No overnight events. Still wants to stay for testing tomorrow. Did have Zofran/Antivert yesterday. Symptoms have not returned and he no longer has a sense of doom. Day three of hospital stay, patient had an episode of anxiety around 4 a.m, was resolved with Ativan. Provider requested Physical Therapy to evaluate and perform Marilyn maneuver. Patient has a hard time explaining how he is feeling and states he is having trouble processing things when first looking at them. He disclosed he has not been taking his Thyroid medication, suspected Myxedema as a result. Echocardiogram and CTA of Head/Neck will be performed today. Other than eyes and head feeling funny and different patient denies any further issues since Tuesday been doing OK otherwise. Day four of hospital stay, patient is feeling a lot better and observed to be more alert and able to articulate the symptoms he had been feeling and when it started. Patient had a difficult time explaining symptoms previous day. Provider educated patient on thyroid medication and the importance of taking it as prescribed. Provider recommends a follow up with a Neurologist, patient stated he prefers to have his PCP refer him out. Patient is to follow up with PCP in 5- 7 days of discharge. Status at Discharge Functional status at discharge: independent ambulation Overall status at discharge: patient is back to baseline Time Spent with Patient Time attestation: Total time spent providing and/or coordinating discharge services: Time spent: greater than 30 minutes Exam Exam: Patient sitting on couch with son upon entering room for exam. Constitutional: normal general appearance, no apparent distress, average body habitus, no limitations and alert Vital Signs - 24 hr 12/17/24 12:00 12/17/24 16:00 12/17/24 19:40 Temperature 98.4 F 98.8 F 98.2 F Pulse Rate [Left B rachial] 54 L 55 L 66 Respiratory Rate 19 20 16 Blood Pressure [Le ft Arm] 127/68 153/81 172/80 Pulse Oximetry 96 97 97 Oxygen Delivery Me thod Room Air Room Air Room Air 12/17/24 23:25 12/18/24 03:28 12/18/24 08:00 Temperature 98.7 F 98.5 F 98.8 F Pulse Rate [Left B rachial] 63 69 64 Respiratory Rate 19 17 19 Blood Pressure [Le ft Arm] 134/66 141/75 137/83 Pulse Oximetry 100 100 97 Oxygen Delivery Me thod Room Air Room Air Room Air HENMT: normocephalic, head/scalp atraumatic, hearing grossly normal bilaterally, external ears normal, TMs normal bilaterally, nasal mucous membranes normal, external nose normal, oral mucous membranes normal and oropharynx normal Eyes: PERRL, EOMs intact bilaterally, conjunctivae normal, no scleral icterus, papilledema noted, normal visual segal by confrontation, alignment normal, periorbital findings normal and no nystagmus Neck/C-Spine: visual inspection normal, trachea midline, cervical spine nontender, abnormal cervical ROM noted, supple, no meningeal signs, thyroid normal and no carotid bruits Lymph: no lymphadenopathy noted and no lymphedema noted Chest: inspection of chest normal and palpation of chest normal Respiratory: breath sounds equal bilaterally, normal respiratory effort, clear to auscultation bilaterally, no wheezes, no rales, no retractions and no use of accessory muscles Cardiovascular: heart rate abnormal (bradycardic), regular rhythm noted, no gallop, no rub, no murmur, no JVD, no clicks, peripheral pulses 2+ throughout, no bruits noted and no additional abnormal heart sounds Gastrointestinal: abdomen normal to inspection, abdomen soft to palpation, nontender to palpation, nontender to percussion, nondistended, normoactive bowel sounds, no hepatosplenomegaly, no masses, no pulsatile mass, no ascites and no hernia Genitourinary: no CVA tenderness Back/Pelvis: spine normal to inspection, no thoracic spine tenderness, no lumbar spine tenderness, thoracic spine ROM normal, lumbar spine ROM normal and no paraspinal muscle tenderness noted Extremities: normal to inspection, normal to palpation, no tenderness, full ROM, no joint enlargement and no deformity Neurology: kiosk sales representative II-XII intact, no movement abnormality noted, no focal motor deficit noted, no sensory deficits noted, gait normal, speech normal, coordination normal, no pronator drift noted, no fasciculations noted and GCS normal Psychiatry: mental status grossly normal, oriented x3, thought process abnormality noted, cooperative, affect abnormality noted (depressed), psychomotor activity normal and memory normal Skin: skin color normal, no rash, no lesions, no ecchymosis noted, no wounds, no lacerations, skin turgor normal, no jaundice, no petechiae, no mottling and nails abnormality noted DS: Data Data Completed and Pending Labs on day of discharge: Labs from last 24 hours 12/18/24 12/17/24 05:10 04:50 WBC 10.1 H RBC 4.0 L Hgb 13.9 L Hct 40.1 L MCV 99.4 H MCH 34.6 H MCHC 34.8 RDW 13.6 Plt Count 191 MPV 7.6 Gran % 72.7 Lymph % (Auto) 13.1 L [place] % (Auto) 8.3 Eos % (Auto) 5.2 H Baso % (Auto) 0.7 Lymph # (Auto) 1.3 [place] # (Auto) 0.8 Eos # (Auto) 0.5 H Baso # (Auto) 0.1 Absolute Gran (auto) 7.3 H Sodium 139 Potassium 3.8 Chloride 107.0 Carbon Dioxide 24 Anion Gap 8.0 BUN 14 Creatinine 1.2 Estimated GFR 63.9 Glucose 88 Calcium 8.3 L Phosphorus 3.9 Magnesium 2.1 TSH 2.57 Free T4 8.10 H Imaging Chest x-ray: Radiologist's impression: XR CHEST 1V Date of Service: 12/14/24 HISTORY: painpain; COMPARISON: Prior study or studies were utilized for comparison during interpretation with the most relevant dated 01/18/2020 TECHNIQUE: XR CHEST 1V FINDINGS: Chest: Lines and tubes: Cardiac leads overlie the chest. Mediastinum: Cardiac and mediastinal shadow is within normal limits for size and contour. Pulmonary vessels: No pulmonary vascular congestion. Lung segal: No suspicious airspace opacity. Pleura: No effusion. No pneumothorax. Bones and soft tissues: No acute osseous or soft tissue abnormality. IMPRESSION: 1. No acute cardiopulmonary abnormality CT scan - head: Radiologist's impression: HEAD CT WITHOUT INTRAVENOUS CONTRAST Date of Service: 12/14/24 HISTORY: Near syncope. Altered mental status. Nausea. Vomiting. TECHNIQUE: Spiral axial CT images are obtained through the brain without the administration of intravenous contrast. Sagittal and coronal reformatted images are reconstructed. COMPARISON: None available. FINDINGS: There is mild to moderate diffuse cerebral cortical atrophy. The centrum semiovale, cerebellum, and brainstem are otherwise grossly unremarkable for a noncontrast CT scan. Atherosclerosis of the carotid siphons is seen. Consider follow-up MRA as clinically warranted. There are nonspecific bilateral symmetrical basal ganglia calcifications; DDx includes (but is not limited to) sequela of infectious disease (e.g., TORCH infection, and HIV); endocrine/metabolic disease (parathyroid disorders, e.g. hypoparathyroidism, hyperparathyroidism and pseudohypoparathyroidism); idiopathic primary/secondary familial brain calcification (or Fahr disease/syndrome), and post radiation change (mineralizing microangiopathy) in the appropriate clinical setting. There is no acute intracranial hemorrhage, discernible acute infarction, mass lesion, midline shift, or hydrocephalus seen. Nonspecific pineal gland calcification is seen. No extra-axial mass or abnormal fluid collection is seen. The calvarium is intact. The partially imaged paranasal sinuses, middle ear cavities, and mastoid air cells are clear. IMPRESSION: 1. No intracranial hemorrhage, discernible acute infarction, mass lesions, midline shift, mass effect or hydrocephalus seen. 2. Mild to moderate diffuse cerebral cortical atrophy. 3. Atherosclerosis of the carotid siphons is seen. Consider follow-up MRA as clinically warranted. 4. Consider followup evaluation with MRI/MRA imaging for further assessment as clinically warranted. CT scan - abdomen: Radiologist's impression: CT ABDOMEN PELVIS W CON Date of Service: 12/14/24 HISTORY: Abdominal pain with nausea and vomiting. COMPARISON: None. TECHNIQUE: Axial CT images of the abdomen and pelvis were obtained after the administration of IV contrast and reformatted into coronal and sagittal planes for further evaluation. Radiation dose: 663.5 mGy-cm total DLP FINDINGS: Lung bases are clear. Distal esophageal wall thickening. Stomach appears normal. Solid visceral organs of the upper abdomen are unremarkable. Gallbladder appears normal with no biliary dilatation. Homogeneous enhancement of the kidneys without hydronephrosis or hydroureter. Unremarkable appearance of the urinary bladder. Nonspecific enlargement of the prostate gland. Colonic diverticulosis without diverticulitis. Otherwise, unremarkable appearance of the small and large bowel. No evidence of acute appendicitis. No pneumoperitoneum. No significant fluid collection. No adenopathy. No acute osseous abnormality. Mild multilevel degenerative disc disease. Moderate right and mild left hip joint degenerative changes. Small right and moderate left fat containing inguinal hernias without inflammatory changes. IMPRESSION: 1. No acute intra-abdominal abnormality detected. 2. Distal esophageal wall thickening could represent esophagitis; correlate clinically. 3. Colonic diverticulosis without diverticulitis. 4. Nonspecific enlargement of the prostate gland. 5. Small right and moderate left fat containing inguinal hernias without inflammatory changes. Head/Neck CTA: Radiologist's impression: CTA HEAD/NECK W Date of Service: 12/17/24 HISTORY: near syncope and vertigo. Near syncope and vertigo; COMPARISON: Head CT 12/14/2024 TECHNIQUE: Multiple CT axial images of the neck and head were obtained before and after using IV contrast. 3D reconstructions utilizing axial MIPS imaging was performed and reviewed. Dose reduction techniques including Automated Exposure Control (AEC) and adjustment of mA and kV were utilized. Stenoses are measured using NASCET criteria. Normal is no stenosis. Mild is less than 50% stenosis. Moderate is 50-69% stenosis. Severe is 70% to 99% stenosis. Total occlusion is no detectable patent lumen. FINDINGS: Head without contrast: Only minimal age-related changes are present. [place] and white matter have normal differentiation. There is no mass, shift, or hemorrhage. Cerebellar tonsils are at an appropriate level. No fluid in the sinuses or mucosal thickening to suggest sinusitis. There is no mastoid effusion. Neck with contrast: Aorta has a normal caliber with no aneurysm, dissection, or stenosis. The usual three-vessel anatomy is present off the aortic arch. There is no stenosis at the origins of the great vessels. No subclavian artery or proximal axillary artery stenosis. Right common carotid artery is widely patent. Very minimal calcified plaque seen in the posterior wall of the right carotid bulb. The cervical segment right internal carotid artery is patent to the skull base. Left common carotid artery is widely patent. There is no significant plaque disease in the carotid bulb. No carotid bulb stenosis. Cervical segment left internal carotid artery is patent to the skull base. Vertebral arteries are patent an equal in size. No significant vertebral occlusion. Lung apices are clear. The thyroid has a normal size and configuration. No neck mass or significant lymphadenopathy. Head with contrast: The basilar artery is widely patent and branches into large bilateral posterior cerebral arteries. Neither posterior communicating artery is identified. Normal anterior communicating artery. There is minimal calcified plaque disease in the right and left carotid siphon without significant stenosis. A1 segment right anterior cerebral artery is very small, normal variant anatomy. Otherwise anterior cerebral and middle cerebral arteries are widely patent. There is no large vessel occlusion. No aneurysm or arterovenous malformation. IMPRESSION: 1. No significant carotid bulb plaque disease or stenosis 2. No significant cerebrovascular occlusion Discharge Plan Discharge Disposition: Home, Self-Care Condition: Improved Discharge Medications: New aspirin 81 mg capsule 81 mg PO DAILY Qty: 30 0RF tamsulosin [Flomax] 0.4 mg capsule 0.4 mg PO 2100 Qty: 30 0RF Continued allopurinol 100 mg tablet 100 mg PO DAILY Patient Comments: TAKE ONE TABLET BY MOUTH EVERY DAY diclofenac sodium 50 mg tablet,delayed release (DR/EC) 50 mg PO DAILY PRN (Reason: pain ) Patient Comments: TAKE ONE TABLET BY MOUTH EVERY DAY folic acid 1 mg tablet 3 mg PO DAILY Patient Comments: TAKE THREE TABLETS BY MOUTH EVERY DAY levothyroxine 50 mcg tablet 50 mcg PO QAM Patient Comments: Take 1 tablet by mouth every morning with water at least 30 to 60 minutes before any other medication, food, or drink. lisinopril 10 mg tablet 10 mg PO BID pantoprazole 40 mg tablet,delayed release (DR/EC) 40 mg PO DAILY Patient Comments: TAKE ONE TABLET BY MOUTH EVERY DAY cannabidiol See Rx Instructions PO DAILY Rx Instructions: orally daily; 1 TABLET, OTC Discontinued methotrexate sodium 2.5 mg tablet 7.5 mg PO QWEEK Patient Comments: TAKE THREE tabs in THE IN THE MORNING AND THREE TABLETS in THE evening one DAY WEEKLY Discharge Orders: Discharge Order (Routine); Ordered 12/18/24 Ordered By: Kelly Miller Activity: increase activity as tolerated Diet: advance to your usual diet Interventions: Discharge Assessment Last Done: 12/18/24 10:31 MED/SURG & ICU Observation Charge Sheet Last Done: 12/18/24 05:22 Patient Instructions: Dehydration (GEN), Near Syncope (GEN) Activity Restrictions/Additional Instructions: follow up Bailey Spain for thyroid and neurology referral for further evaluation and testing of the confusion son is reporting for the patient. stop methotrexate and discuss other options for rheumatoid arthritis with his PCP and Rheumatology stay hydrated patient states he will discuss neurologist with his family and his PCP and make an appointment for follow up continue to discuss BPH and nocturia with his PCP and his urologist he states he has been seeing Forms: Portal/Health Info Access Inst Follow-Ups: Bailey Spain NP [Primary Care Provider] -
== END 2024-12-18 11:07 | disposition home or self-care (01) ==
LOC: MS 19:04 → ED 19:04 → MS 23:45
PROVIDERS: ADMIT Nurse Practitioner Family; ATTEND Family Medicine
DX: R55 Syncope and collapse; E86.0 Dehydration; I10 Essential (primary) hypertension; R11.2 Nausea with vomiting, unspecified; R41.0 Disorientation, unspecified; M05.79 Rheumatoid arthritis with rheumatoid factor of multiple sites without organ or systems involvement; R42 Dizziness and giddiness; E87.6 Hypokalemia; E03.8 Other specified hypothyroidism; N17.8 Other acute kidney failure